=== PATIENT | female | born 1975 | race Caucasian/White ===

== ENCOUNTER 2017-01-26 12:21 | Emergency (ER) | payer OTHER ==
[2017-01-26 12:54] VITALS: BP 136/94
--- NOTE | 2017-01-26 13:10 | UC ---
Shoulder Pain HPI - HPI Summary HPI Summary: patient was moving heavy objects about 5 days ago, has developed worsening spasm of the right shoulder and neck. denies any trauma, - History of Current Complaint Chief Complaint: UCUpperExtremity Stated Complaint: RIGHT SHOULDER PAIN Time Seen by Provider: 01/26/17 13:01 Hx Obtained From: Patient Hx Last Menstrual Period: 12/08/16 ?: No Onset/Duration: Gradual Onset, Lasting Days Timing: Constant Severity Initially: Mild Severity Currently: Severe Character: Spasmodic, Stiffness Aggravating Factor(s): Movement Alleviating Factor(s): Nothing Related History: Dominant Hand Right - Allergies/Home Medications Allergies/Adverse Reactions: Allergies Allergy/AdvReac Type Severity Reaction Status Date / Time Amoxicillin Allergy Eyes Verified 01/26/17 12:54 Itchy/Swollen/Red/Watery Penicillins Allergy Rash Verified 01/26/17 12:54 Home Medications: Home Medications Cholecalciferol [Vitamin D] 1,000 unit PO 01/26/17 [History] Lactobacillus [Probiotic] 1 cap PO 01/26/17 [History] [place]-3 Fatty Acids [Fish Oil] 1,000 mg PO 01/26/17 [History Confirmed 01/26/17] Phenylephrine W/ Acetaminophen [Tylenol Sinus Congestion 5-325 mg] 2 tab PO PRN 01/26/17 [History] PMH/Surg Hx/FS Hx/Imm Hx Previously Healthy: Yes - Surgical History Surgical History: None - Family History Known Family History: Positive: None, Diabetes - Social History Alcohol Use: Weekly Alcohol Amount: 1-2 wine Substance Use Type: None Smoking Status (MU): Never Smoked Tobacco Review of Systems Constitutional: Negative Skin: Negative Eyes: Negative ENT: Negative Respiratory: Negative Cardiovascular: Negative Gastrointestinal: Negative Genitourinary: Negative Motor: Negative Musculoskeletal: Arthralgia, Decreased ROM, Myalgia Neurological: Negative Psychological: Negative All Other Systems Reviewed And Are Negative: Yes Physical Exam Triage Information Reviewed: Yes Appearance: Well-Appearing, Well-Nourished, Pain Distress Vital Signs: Initial Vital Signs Temp 98.8 F 01/26/17 12:47 Pulse 82 01/26/17 12:47 Resp 16 01/26/17 12:47 BP 136/94 01/26/17 12:47 Pulse Ox 100 01/26/17 12:47 Vital Signs Reviewed: Yes Eye Exam: Normal ENT Exam: Normal Respiratory Exam: Normal Respiratory: Positive: Chest non-tender, Lungs clear, Normal breath sounds Cardiovascular Exam: Normal Cardiovascular: Positive: RRR, No Murmur, Pulses Normal Abdominal Exam: Normal Abdomen Description: Positive: Nontender, No Organomegaly, Soft Bowel Sounds: Positive: Present Musculoskeletal: Positive: No Edema, ROM Limited @ - in all direction on the right shoulder Neurological Exam: Normal Neurological: Positive: Alert, Muscle Tone Normal Psychological Exam: Normal Skin Exam: Normal Shoulder Course/Dx - Course Course Of Treatment: hx obtained, exam performed ,meds reviewed, educated on measures to treat the spasm, medication prescribed. - Differential Dx/Diagnosis Provider Diagnoses: muscle spasm of right shoulder and neck Discharge - Discharge Plan Condition: Stable Disposition: HOME Prescriptions: Cyclobenzaprine TAB* [Flexeril 10 MG TAB*] 10 mg PO TID PRN #21 tab PRN Reason: Spasms Patient Education Materials: Muscle Spasm (ED) Referrals: Efren HENRIQUEZ,Osiel Maldonado [Primary Care Provider] - Additional Instructions: 1. heat the areas with warm compress 2. Take the flexeril as prescribed 3. Use ibuprofen 600 mg every 6-8 hours or aleve 1-2 tabs every 12 hours 4. use your sling to rest the muscles. 5. I recommend massage in a few days when initial spasm is relaxed.
== END 2017-01-26 13:25 | disposition home or self-care (01) ==
LOC: UCCORT 12:21
DX: M62.838 Other muscle spasm (principal); M25.511 Pain in right shoulder; M54.2 Cervicalgia; Z88.0 Allergy status to penicillin
CPT/HCPCS: 99212; G0463